=== PATIENT | female | born 1955 | race Asian ===

== ENCOUNTER → 2017-03-27 16:31 | Outpatient (CLI) | payer OTHER | END | disposition home or self-care (01) | LOC: D.MAMMO 08:00 | DX: Z12.31 Encounter for screening mammogram for malignant neoplasm of breast (principal) ==

== ENCOUNTER 2018-09-02 08:00 | Outpatient (CLI) | payer OTHER | END 2018-09-02 09:00 | disposition home or self-care (01) | LOC: D.MAMMO 08:00 | DX: Z12.31 Encounter for screening mammogram for malignant neoplasm of breast (principal) ==

== ENCOUNTER 2019-10-13 08:30 | Outpatient (CLI) | payer OTHER | END 2019-10-13 09:00 | disposition home or self-care (01) | LOC: D.MAMMO 08:30 | PROVIDERS: ATTEND Emergency Medicine | DX: Z12.31 Encounter for screening mammogram for malignant neoplasm of breast (principal) ==

== ENCOUNTER 2020-11-22 11:30 | Outpatient (CLI) | payer OTHER | END 2020-11-22 12:30 | disposition home or self-care (01) | LOC: D.MAMMO 11:30 | PROVIDERS: ATTEND Emergency Medicine | DX: Z12.31 Encounter for screening mammogram for malignant neoplasm of breast (principal) ==